=== PATIENT | female | born 1970 | race Caucasian/White ===

== ENCOUNTER 2020-11-22 16:47 | Outpatient (CLI) | payer OTHER ==
[2020-11-23 01:24] LABS: SARS-CoV-2 PCR by NAA Not Detected (NotDetected)
== END 2020-11-22 16:48 | disposition home or self-care (01) ==
LOC: LABBT 16:47
PROVIDERS: ATTEND Internal Medicine Gastroenterology
DX: Z01.812 Encounter for preprocedural laboratory examination (principal); Z12.11 Encounter for screening for malignant neoplasm of colon; Z20.822 Contact with and (suspected) exposure to COVID-19
CPT/HCPCS: 87635; U0003; U0005

== ENCOUNTER 2020-11-27 10:27 | Day surgery (SDC) | payer OTHER ==
[2020-11-26 14:27] VITALS: BMI 49.1
[2020-11-27] MEDS ORDERED: PROPOFOL 200 MG/20 ML VIAL ONE (11:46)
[2020-11-27] MEDS ORDERED: Lidocaine 1% PF 5 ML VIAL ONE (11:46)
== END 2020-11-27 13:07 | disposition home or self-care (01) ==
LOC: SDC 10:27
PROVIDERS: ATTEND Internal Medicine Gastroenterology
PROC: 0DBM8ZZ Excision of Descending Colon, Via Natural or Artificial Opening Endoscopic (ICD-10-PCS; principal; 2020-11-27)
DX: Z12.11 Encounter for screening for malignant neoplasm of colon (principal); K63.5 Polyp of colon; E11.9 Type 2 diabetes mellitus without complications; E78.00 Pure hypercholesterolemia, unspecified; E66.9 Obesity, unspecified; Z68.42 Body mass index [BMI] 45.0-49.9, adult; Z79.84 Long term (current) use of oral hypoglycemic drugs; Z79.899 Other long term (current) drug therapy
CPT/HCPCS: 88305; J2704